=== PATIENT | female | born 1985 ===

== ENCOUNTER → 2021-07-12 | Outpatient (CLI) | payer BC ==
--- NOTE | 2021-07-13 07:54 | US ---
EXAMINATION TYPE: US pelvic complete DATE OF EXAM: 07/12/2021 COMPARISON: NONE CLINICAL HISTORY: D64.9 Anemia, unspecified. anemia, irregular menses, D&C 10/29 TECHNIQUE: Transabdominal (TA). Date of LMP: 07/11/21 EXAM MEASUREMENTS: Uterus: 8.0 x 3.5 x 4.6 cm Endometrial Stripe: 0.6 cm Right Ovary: 3.1 x 2.1 x 2.0 cm Left Ovary: 2.5 x 1.9 x 2.0 cm 1. Uterus: Anteverted wnl 2. Endometrium: wnl 3. Right Ovary: follicles noted 4. Left Ovary: follicles noted 5. Bilateral Adnexa: wnl 6. Posterior cul-de-sac: wnl Urinary bladder is sonolucent. The posterior wall is normal. IMPRESSION: 1. Normal pelvic ultrasound
== END | disposition home or self-care (01) ==
LOC: RADUSWWP 15:39 → MERGE 16:20
PROVIDERS: ATTEND Family Medicine
DX: D64.9 Anemia, unspecified (principal)
CPT/HCPCS: 76856

== ENCOUNTER 2021-10-28 04:01 | Emergency (ER) | payer BC ==
[2021-10-28 04:14] VITALS: PULSE 77
[2021-10-28 04:39] LABS: Basophils # (A) 0.1 k/uL (0-0.2); Basophils % (A) 1 %; Eosinophils # (A) 0.2 k/uL (0-0.7); Eosinophils % (A) 1 %; HCT 39.2 % (34.0-46.0); HGB 12.9 gm/dL (11.4-16.0); Lymphocytes # (A) 3.2 k/uL (1.0-4.8); Lymphocytes % (A) 31 %; MCH 28.1 pg (25.0-35.0); MCHC 32.8 g/dL (31.0-37.0); MCV 85.6 fL (80.0-100.0); Mean Platelet Volume 8.5; Monocytes # (A) 0.5 k/uL (0-1.0); Monocytes % (A) 5 %; Neutrophils # (A) 6.1 k/uL (1.3-7.7); Neutrophils % (A) 60 %; Platelet Count 253 k/uL (150-450); RBC 4.58 m/uL (3.80-5.40); RDW 12.6 % (11.5-15.5); WBC 10.2 k/uL (3.8-10.6)
[2021-10-28 04:47] LABS: Partial Thromboplastin Time 24.7 sec (22.0-30.0); Prothrombin Time 10.9 sec (9.0-12.0)
[2021-10-28 04:49] LABS: Appearance,Urine Cloudy (Clear); Bacteria,Urine Rare /hpf; Bilirubin,Urine Negative (Negative); Blood,Urine Large (Negative); Color,Urine Yellow; Glucose,Urine (UA) Negative (Negative); Hyaline Casts,Urine 1 /lpf (0-2); Ketones,Urine Negative (Negative); Leukocyte Esterase,Urine Negative (Negative); Mucus,Urine Occasional /hpf; Nitrite,Urine Negative (Negative); PH, Urine 5.5 (5.0-8.0); Protein,Urine Trace (Negative); RBC,Urine 10 /hpf (0-5); Specific Gravity,Urine 1.026 (1.001-1.035); Squamous Epithelial Cell,Urine 4 /hpf (0-4); Urobilinogen,Urine <2.0 mg/dL (<2.0); WBC,Urine 2 /hpf (0-5)
[2021-10-28 04:56] LABS: ALT 23 U/L (4-34); AST 21 U/L (14-36); African American GFR (CKD) >90 (>60 ml/min/1.73 sqM); Alkaline Phosphatase 88 U/L (38-126); Anion Gap 9 mmol/L; Blood Urea Nitrogen 11 mg/dL (7-17); Carbon Dioxide 21 mmol/L (22-30); Chloride 106 mmol/L (98-107); Glucose 105 mg/dL (74-99); Non-African American GFR(CKD) >90 (>60 ml/min/1.73 sqM); Potassium 3.9 mmol/L (3.5-5.1); Sodium 136 mmol/L (137-145); Total Bilirubin 0.9 mg/dL (0.2-1.3); Total Protein 7.8 g/dL (6.3-8.2)
[2021-10-28 05:47] LABS: HCG,Quantitative Serum 29646.5 mIU/mL
[2021-10-28 06:33] VITALS: BP 105/59; RESP 18; TEMP 98.5
--- NOTE | 2021-10-28 07:25 | ED ---
Female Urogenital HPI - General Source: patient Mode of arrival: ambulatory Limitations: no limitations - History of Present Illness Last Menstrual Period: 09/12/21 <Juanita Garza - Last Filed: 10/28/21 07:24> <Jesus Blanchard - Last Filed: 10/28/21 08:25> - General Chief complaint: Vaginal Bleeding Stated complaint: Vaginal Bleeding, 6 Weeks Preg. - History of Present Illness Initial comments: 36-year-old female who is approximately 6 weeks presents to the emergency room with vaginal bleeding. Last menstrual cycle was September 12. States that last week she followed up at the [facility]. She had laboratory studies completed as well as an ultrasound. Ultrasound demonstrated an intrauterine however no heartbeat was present. She has a follow-up appointment with Dr. Toney on November 12. States that last night she began having some mild brown spotting. No changes in her bowel or bladder habits. No fevers. Has had 1 previous miscarriage around the same time last year. No abdominal trauma. No other alleviating, precipitating or modifying factors (Juanita Garza) - Related Data Previous Rx's Medication Instructions Recorded Ibuprofen [Motrin] 600 mg PO Q6HR PRN #30 tab 11/04/20 Allergies Allergy/AdvReac Type Severity Reaction Status Date / Time shellfish derived [Shrimp] Allergy Rash/Hives Verified 10/28/21 04:15 Review of Systems ROS Other: All systems not noted in ROS Statement are negative. <Juanita Garza - Last Filed: 10/28/21 07:24> ROS Other: All systems not noted in ROS Statement are negative. <Jesus Blanchard - Last Filed: 10/28/21 08:25> ROS Statement: Those systems with pertinent positive or pertinent negative responses have been documented in the HPI. Past Medical History Past Medical History: No Reported History History of Any Multi-Drug Resistant Organisms: None Reported Past Surgical History: Section Past Anesthesia/Blood Transfusion Reactions: No Reported Reaction Past Psychological History: No Psychological Hx Reported Smoking Status: Never smoker Past Alcohol Use History: None Reported Past Drug Use History: None Reported - Past Family History Mother Family Medical History: Diabetes Mellitus <Juanita Garza - Last Filed: 10/28/21 07:24> General Exam Limitations: no limitations General appearance: alert, in no apparent distress Head exam: Present: atraumatic, normocephalic, normal inspection Eye exam: Present: normal appearance, PERRL, EOMI. Absent: scleral icterus, conjunctival injection, periorbital swelling ENT exam: Present: normal exam, mucous membranes moist Neck exam: Present: normal inspection. Absent: tenderness, meningismus, lymphadenopathy Respiratory exam: Present: normal lung sounds bilaterally. Absent: respiratory distress, wheezes, rales, rhonchi, stridor Cardiovascular Exam: Present: regular rate, normal rhythm, normal heart sounds. Absent: systolic murmur, diastolic murmur, rubs, gallop, clicks GI/Abdominal exam: Present: soft, normal bowel sounds. Absent: distended, tenderness, guarding, rebound, rigid Extremities exam: Present: normal inspection, full ROM, normal capillary refill. Absent: tenderness, pedal edema, joint swelling, calf tenderness Back exam: Present: normal inspection Neurological exam: Present: alert, oriented X3, CN II-XII intact Psychiatric exam: Present: normal affect, normal mood Skin exam: Present: warm, dry, intact, normal color. Absent: rash <Juanita Garza - Last Filed: 10/28/21 07:24> Course Vital Signs 10/28/21 10/28/21 04:11 06:30 Temperature 97.8 F 98.5 F Pulse Rate 77 77 Respiratory 16 18 Rate Blood Pressure 117/74 105/59 O2 Sat by Pulse 98 96 Oximetry Medical Decision Making - Lab Data Result diagrams: 10/28/21 04:26 10/28/21 04:26 <Juanita Garza - Last Filed: 10/28/21 07:24> - Lab Data Result diagrams: 10/28/21 04:26 10/28/21 04:26 <Jesus Blanchard - Last Filed: 10/28/21 08:25> - Medical Decision Making Upon arrival the patient is placed into 21. A thorough history and physical exam was performed. Laboratory studies are conducted. The Quant is 29,646. Patient is awaiting ultrasound and will be signed out to Dr. Blanchard. (Juanita Garza) Patient was signed out awaiting ultrasound imaging. Ultrasound performed showing a 6 week gestation with subchorionic hemorrhage and borderline bradycardia heart rate in the 100. Patient has not had significant vaginal bleeding only spotting. Her hemodynamics are stable. She does not require Rhogam. She is given return parameters and instructed to follow up with obstetrics. (Jesus Blanchard) - Lab Data Lab Results 10/28/21 10/28/21 10/28/21 Range/Units 04:26 04:26 04:26 WBC 10.2 (3.8-10.6) k/uL RBC 4.58 (3.80-5.40) m/uL Hgb 12.9 (11.4-16.0) gm/dL Hct 39.2 (34.0-46.0) % MCV 85.6 (80.0-100.0) fL MCH 28.1 (25.0-35.0) pg MCHC 32.8 (31.0-37.0) g/dL RDW 12.6 (11.5-15.5) % Plt Count 253 (150-450) k/uL MPV 8.5 Neutrophils % 60 % Lymphocytes % 31 % Monocytes % 5 % Eosinophils % 1 % Basophils % 1 % Neutrophils # 6.1 (1.3-7.7) k/uL Lymphocytes # 3.2 (1.0-4.8) k/uL Monocytes # 0.5 (0-1.0) k/uL Eosinophils # 0.2 (0-0.7) k/uL Basophils # 0.1 (0-0.2) k/uL PT 10.9 (9.0-12.0) sec INR 1.0 (<1.2) APTT 24.7 (22.0-30.0) sec Sodium (137-145) mmol/L Potassium (3.5-5.1) mmol/L Chloride (98-107) mmol/L Carbon Dioxide (22-30) mmol/L Anion Gap mmol/L BUN (7-17) mg/dL Creatinine (0.52-1.04) mg/dL Est GFR (CKD-EPI)AfAm (>60 ml/min/1.73 sqM) Est GFR (CKD-EPI)NonAf (>60 ml/min/1.73 sqM) Glucose (74-99) mg/dL Calcium (8.4-10.2) mg/dL Total Bilirubin (0.2-1.3) mg/dL AST (14-36) U/L ALT (4-34) U/L Alkaline Phosphatase (38-126) U/L Total Protein (6.3-8.2) g/dL Albumin (3.5-5.0) g/dL HCG, Quant mIU/mL Urine Color Yellow Urine Appearance Cloudy H (Clear) Urine pH 5.5 (5.0-8.0) Ur Specific Edmond 1.026 (1.001-1.035) Urine Protein Trace H (Negative) Urine Glucose (UA) Negative (Negative) Urine Ketones Negative (Negative) Urine Blood Large H (Negative) Urine Nitrite Negative (Negative) Urine Bilirubin Negative (Negative) Urine Urobilinogen <2.0 (<2.0) mg/dL Ur Leukocyte Esterase Negative (Negative) Urine RBC 10 H (0-5) /hpf Urine WBC 2 (0-5) /hpf Ur Squamous Epith Cells 4 (0-4) /hpf Urine Bacteria Rare H (None) /hpf Hyaline Casts 1 (0-2) /lpf Urine Mucus Occasional H (None) /hpf Blood Type Blood Type Recheck Bld Type Recheck Status 10/28/21 10/28/21 Range/Units 04:26 04:26 WBC (3.8-10.6) k/uL RBC (3.80-5.40) m/uL Hgb (11.4-16.0) gm/dL Hct (34.0-46.0) % MCV (80.0-100.0) fL MCH (25.0-35.0) pg MCHC (31.0-37.0) g/dL RDW (11.5-15.5) % Plt Count (150-450) k/uL MPV Neutrophils % % Lymphocytes % % Monocytes % % Eosinophils % % Basophils % % Neutrophils # (1.3-7.7) k/uL Lymphocytes # (1.0-4.8) k/uL Monocytes # (0-1.0) k/uL Eosinophils # (0-0.7) k/uL Basophils # (0-0.2) k/uL PT (9.0-12.0) sec INR (<1.2) APTT (22.0-30.0) sec Sodium 136 L (137-145) mmol/L Potassium 3.9 (3.5-5.1) mmol/L Chloride 106 (98-107) mmol/L Carbon Dioxide 21 L (22-30) mmol/L Anion Gap 9 mmol/L BUN 11 (7-17) mg/dL Creatinine 0.50 L (0.52-1.04) mg/dL Est GFR (CKD-EPI)AfAm >90 (>60 ml/min/1.73 sqM) Est GFR (CKD-EPI)NonAf >90 (>60 ml/min/1.73 sqM) Glucose 105 H (74-99) mg/dL Calcium 9.0 (8.4-10.2) mg/dL Total Bilirubin 0.9 (0.2-1.3) mg/dL AST 21 (14-36) U/L ALT 23 (4-34) U/L Alkaline Phosphatase 88 (38-126) U/L Total Protein 7.8 (6.3-8.2) g/dL Albumin 4.0 (3.5-5.0) g/dL HCG, Quant 06176.5 mIU/mL Urine Color Urine Appearance (Clear) Urine pH (5.0-8.0) Ur Specific Edmond (1.001-1.035) Urine Protein (Negative) Urine Glucose (UA) (Negative) Urine Ketones (Negative) Urine Blood (Negative) Urine Nitrite (Negative) Urine Bilirubin (Negative) Urine Urobilinogen (<2.0) mg/dL Ur Leukocyte Esterase (Negative) Urine RBC (0-5) /hpf Urine WBC (0-5) /hpf Ur Squamous Epith Cells (0-4) /hpf Urine Bacteria (None) /hpf Hyaline Casts (0-2) /lpf Urine Mucus (None) /hpf Blood Type A Positive Blood Type Recheck A Pos Bld Type Recheck Status No Disposition <Juanita Garza A - Last Filed: 10/28/21 07:24> Is patient prescribed a controlled substance at d/c from ED?: No Time of Disposition: 08:25 <Jesus Blanchard - Last Filed: 10/28/21 08:25> Clinical Impression: Threatened miscarriage in early Disposition: HOME SELF-CARE Condition: Fair Instructions (If sedation given, give patient instructions): Threatened Miscarriage (ED), (ED) Referrals: Alan Kebede MD [Primary Care Provider] - 1-2 days Constance Toney DO [Doctor of Osteopathic Medicine] - 1-2 days
--- NOTE | 2021-10-28 08:10 | US ---
EXAMINATION TYPE: Ultrasound OB <= 14 weeks transvaginal DATE OF EXAM: 10/28/2021 7:56 AM COMPARISON: NONE CLINICAL HISTORY: 36-year-old female vaginal bleeding, . EXAM PERFORMED: Transvaginal (TV) and Transabdominal (TA) FINDINGS: EXAM MEASUREMENTS: GESTATIONAL AGE / DATING Dates by LMP: (6 weeks/4 days) EDC: 06/19/2022 Dates by Current Scan for: (6 weeks/1 days) EDC: 06/22/2022 MATERNAL ANATOMY Uterus: 9.0 x 5.0 x 5.2 Right Ovary: 2.9 x 2.4 x1.6 Left Ovary: 3.8 x 2.3 x 2.1 Presence of free fluid: none Presence of corpus luteal cyst: Left measuring 1.3 x 1.5 x 1.6 Presence of subchorionic bleed: 2.0 x 1.1 x1.0 along the anterior inferior margin of the gestational sac. GESTATION / SURVEY CRL: 3.82 (6 weeks/1 days) Yolk Sac (normal less than 6mm): 0.3 Heart Rate: 100 bpm Rhythm: Normal IUP: Viable IUP Date of LMP: 09/12/2021 Beta HcG (if available): Radiology Rn notes: Single live IUP, hypoechoic area adjacent to gestational sac, possible subchorioni c bleed. IMPRESSION: 1. Single live intrauterine with estimated gestational age of 6 weeks 4 days by LMP. Curren t ultrasound biometry by crown-rump length is 6 weeks 1 day. 2. Note that heart rate is at the threshold of normal at 100 BPM. At 6 weeks 1 day, less than 1 00 BPM is borderline bradycardia. 3. A moderate sized 2.0 cm perigestational bleed along the inferior margin of the gestational sac. 4. Short interval follow-up can be performed.
== END 2021-10-28 08:54 | disposition home or self-care (01) ==
LOC: EC 04:01
DX: O20.0 Threatened abortion (principal); Z91.013 Allergy to seafood; Z3A.01 Less than 8 weeks gestation of pregnancy
CPT/HCPCS: 36415; 76801; 76817; 80053; 81001; 84702; 85025; 85610; 85730; 86900; 86901

== ENCOUNTER → 2021-11-01 | Outpatient (CLI) | payer BC | END | disposition home or self-care (01) | LOC: LABWHC1 10:02 | PROVIDERS: ATTEND Physician Assistant | DX: O26.859 Spotting complicating pregnancy, unspecified trimester (principal); Z3A.00 Weeks of gestation of pregnancy not specified | CPT/HCPCS: 36415; 84702 ==

== ENCOUNTER 2022-02-14 06:32 | Observation (INO) | payer BC ==
[2022-02-14] MEDS ORDERED: LACTATED RINGERS 1,000 ML IV SCH (10:00)
--- NOTE | 2022-02-14 10:44 | US ---
EXAMINATION TYPE: US OB >= 14 wk fetus DATE OF EXAM: 02/14/2022 COMPARISON: US CLINICAL HISTORY: bleeding, 22 weeks, pain and cramping Hx C Section, 1 miscarriage, D and C. Bleedin g, pain. . TECHNIQUE: Transabdominal (TA) GESTATIONAL AGE / DATING Physician Established: (22 weeks/1 day) EDC: 06/19/2022 Dates by LMP: (22 weeks/1 day) EDC: 06/19/2022 Dates by First Scan: (21 weeks/5 days) EDC: 06/22/2022 Dates by Current Scan: (21 weeks/5 days) EDC: 06/22/2022 SURVEY IUP: Single PLACENTA: Anterior/Fundal PREVIA: No Previa BJORN: 12.07 cm Normal CERVICAL LENGTH (transabdominal: norm > 3.0cm): Measured at 2.69 cm. Unable to clearly visualize. This measures shortened, although bladder is not full. Transvaginal not performed at this time-pend ing doctor's approval. Limited evaluation*. BIOMETRY PRESENTATION: Vertex LIE: Longitudinal BPD: 5.27 cm 22 weeks / 0 days HC: 19.24 cm 21 weeks / 3 days AC: 18.15 cm 23 weeks / 0 days FL: 3.72 cm 21 weeks / 6 days ESTIMATED WEIGHT IN GRAMS: 498.45 grams ESTIMATED WEIGHT IN LBS/OZ: 1 lb. 2 oz. WEIGHT PERCENTAGE BASED ON ESTABLISHED DATES: 55.6% HC/AC: 1.06 Normal FL/AC: 20.52 Normal HEART RATE: 135 bpm RHYTHM: Normal Limited visibility of cervix due to undistended bladder. Measurement taken of cervix appears shorte madeline, although limited. Transvaginal ultrasound pending doctor's approval. IMPRESSION: 1. Limited visibility of the cervix as noted above due to undistended bladder. Measurement of cervix appear somewhat shortened but could be related to the undistended bladder. Correlate clinically. 2. Viable fetus heart rate 135 bpm estimated age of 21 weeks 5 days. 3. Note is made anatomy assessment was not performed.
[2022-02-14 11:04] LABS: Basophils % (A) 0 %; Eosinophils % (A) 0 %; HCT 38.8 % (34.0-46.0); HGB 12.1 gm/dL (11.4-16.0); Lymphocytes # (A) 1.2 k/uL (1.0-4.8); Lymphocytes % (A) 5 %; MCHC 31.1 g/dL (31.0-37.0); MCV 86.9 fL (80.0-100.0); Mean Platelet Volume 8.4; Monocytes # (A) 0.8 k/uL (0-1.0); Monocytes % (A) 3 %; Neutrophils # (A) 23.8 k/uL (1.3-7.7); Neutrophils % (A) 92 %; Platelet Count 241 k/uL (150-450); RBC 4.46 m/uL (3.80-5.40); RDW 12.9 % (11.5-15.5)
[2022-02-14 11:06] LABS: Appearance,Urine Clear (Clear); Bilirubin,Urine Negative (Negative); Blood,Urine Negative (Negative); Color,Urine Yellow; Glucose,Urine (UA) Negative (Negative); Ketones,Urine 4+ (Negative); Leukocyte Esterase,Urine Negative (Negative); Nitrite,Urine Negative (Negative); Protein,Urine Trace (Negative); Specific Gravity,Urine 1.021 (1.001-1.035); Urobilinogen,Urine <2.0 mg/dL (<2.0)
[2022-02-14 13:26] LABS: Glucose,Whole Blood 96 mg/dL (75-99)
[2022-02-14] MEDS ORDERED: INDOMETHACIN 25 MG CAP PO STA (13:30)
[2022-02-14] MEDS ORDERED: AMPICILLIN 2,000 MG in SODIUM CHLORIDE 0.9% 100 ML IVPB STA (13:30)
[2022-02-14] MEDS ORDERED: CALCIUM GLUCONATE 1 GM/10 ML VIAL IV PRN (13:30)
[2022-02-14] MEDS ORDERED: MAGNESIUM SULFATE-WATER PMX 20 GM in WATER FOR INJECTION 1 500ML.BAG IV SCH (13:30)
[2022-02-14] MEDS ORDERED: MAGNESIUM SULFATE GM 6 GM in SODIUM CHLORIDE 0.9% 100 ML IVPB ONE (13:30)
[2022-02-14] MEDS ORDERED: BETAMET ACET-BETAMETH SOD PHOS 6 MG/ML MDV IM SCH (13:30)
[2022-02-14] MEDS ORDERED: MAGNESIUM SULFATE MG 6,000 MG in SODIUM CHLORIDE 0.9% 50 ML IVPB ONE (13:36)
[2022-02-14] MEDS ORDERED: AMPICILLIN 1,000 MG in SODIUM CHLORIDE 0.9% 50 ML IVPB SCH (13:45)
[2022-02-14 15:24] VITALS: RESP 16
[2022-02-14 17:24] VITALS: BP 106/55; PULSE 90; TEMP 98
[2022-02-14] MEDS ORDERED: SUCRALFATE 1 GM TAB PO SCH (17:30)
--- NOTE | 2022-02-14 17:58 | P.HPOB ---
History of Present Illness H&P Date: 02/14/22 Chief Complaint: Lower abdominal cramping, pressure This is a 36-year-old female 3 para 1 at 22 and one sevenths weeks with an estimated date of confinement of 06/19/2022 who presented earlier this morning with complaints of pressure and cramping since lifting a heavy object at work yesterday at about 11:30 AM. She did notice a little pinkish discharge with wiping when she presented to the hospital. Ultrasound was performed while she was here and looked essentially normal for gestational age but the cervical length could not be measured. Estimated weight was 498 g on ultrasound today. Her cramping had decreased after sitting in triage for a few hours but then when she got up to the bathroom she passed a few small clots. She was admitted and observed and complaining of contractions every 7-8 minutes. She was checked at approximately 1 PM and found to be 7-8 cm/70%/-3 station with bulging bag and vertex presentation palpated. Bloody show was noted. She was counseled regarding the fact that the baby is previable at 22 and one sevenths weeks' however there have been limited data on babies delivering this early and surviving however intact survival is very poor. Patient was counseled on all of these risks and was seen by Dr. Biggs from pediatrics who also counseled her regarding care. Knowing all of this information, the patient was given a choice on whether to just observe versus try to tocolyse and prevent delivery. She wishes to proceed with doing everything possible. She was started on magnesium sulfate and Indocin along with ampicillin and given betamethasone. She currently complains of no pain and bleeding has been minimal over 4-5 hour period of time. Her cervix was rechecked and is exactly the same as it was at 1 PM. She would like to be transferred to a higher level facility and I did speak with Dr. Leobardo Gregg ([facility]) from on at [facility] and he has agreed to transfer to the care of Dr. Deshaun Hairston. OB history: . History of 1 delivery at 35 weeks due to labor and after 12 hours of labor, the baby did flip to breech presentation. She also has a history of 1 miscarriage that did require a dilation and curettage. PLANNING LEAD history: No history of sexual transmitted diseases. Social history: She is . She works at a factory. Review of Systems Constitutional: Denies chills, Denies fever Eyes: denies blurred vision, denies pain Ears, nose, mouth and throat: Denies headache, Denies sore throat Cardiovascular: Denies chest pain, Denies shortness of breath Gastrointestinal: Reports abdominal pain (Initially was having lower abdominal cramping and pressure, no pain currently) Genitourinary: Reports abnormal vaginal bleeding, Reports pelvic pain, Reports Musculoskeletal: Reports low back pain Past Medical History Past Medical History: No Reported History History of Any Multi-Drug Resistant Organisms: None Reported Past Surgical History: Section Additional Past Surgical History / Comment(s): D&C Past Anesthesia/Blood Transfusion Reactions: No Reported Reaction Past Psychological History: No Psychological Hx Reported Smoking Status: Never smoker Past Alcohol Use History: None Reported Past Drug Use History: None Reported - Past Family History Mother Family Medical History: Diabetes Mellitus Medications and Allergies Home Medications Medication Instructions Recorded Confirmed Type Cetirizine HCl [Zyrtec] 1 tab PO DAILY 02/14/22 02/14/22 History Pnv No.95/Ferrous Fum/Folic AC 1 tab PO DAILY 02/14/22 02/14/22 History [ Multivitamin Tablet] Allergies Allergy/AdvReac Type Severity Reaction Status Date / Time shellfish derived [Shrimp] Allergy Rash/Hives Verified 10/28/21 04:15 Exam Osteopathic Statement: *. No significant issues noted on an osteopathic structural exam other than those noted in the History and Physical/Consult. Vital Signs Temp Pulse Resp BP Pulse Ox 02/14/22 17:00 98.0 F 90 16 106/55 02/14/22 15:49 94 16 111/56 02/14/22 15:20 98.2 F 92 16 114/53 02/14/22 14:45 100 16 112/60 02/14/22 14:22 103 H 16 115/62 98 02/14/22 14:10 109 H 16 116/58 02/14/22 14:00 98.4 F 103 H 16 116/59 02/14/22 11:21 98.4 F 95 18 103/64 99 02/14/22 07:19 97.3 F L 90 16 114/61 Intake and Output 06/05/3002/14/22 02/14/22 06:59 14:59 22:59 Intake Total 450 300 Output Total 600 250 Balance -150 50 Intake: Intake, IV Titration 400 200 Amount Ampicillin 2,000 mg In 100 Sodium Chloride 0.9% 100 ml @ 200 mls/hr IVPB ONCE STA Rx#:[id number] Lactated Ringers 1,000 ml 250 @ 125 mls/hr IV .Q8H COOPER Rx#:[id number] Magnesium Sulfate mg 6, 50 000 mg In Sodium Chloride 0.9% 50 ml @ 150 mls/hr IVPB ONCE ONE Rx#: [id number] Magnesium Sulfate-Water 200 Pmx 20 gm In Water For Injection 1 500ml.bag @ 2 GM/HR 50 mls/hr IV .Q10H COOPER Rx#:[id number] Oral 50 100 Output: Urine 600 250 Other: # Voids 2 1 Weight 79.379 kg 79.379 kg Results Result Diagrams: 02/14/22 10:41 Abnormal Lab Results - Last 24 Hours (Table) 02/14/22 02/14/22 Range/Units 10:41 10:45 WBC 26.0 H (3.8-10.6) k/uL Neutrophils # 23.8 H (1.3-7.7) k/uL Urine Protein Trace H (Negative) Urine Ketones 4+ H (Negative) Assessment and Plan (1) 22 weeks gestation of Current Visit: Yes Status: Acute Code(s): Z3A.22 - 22 WEEKS GESTATION OF SNOMED Code(s): 96249093 (2) labor in second trimester without delivery Current Visit: Yes Status: Acute Code(s): O60.02 - LABOR WITHOUT DELIVERY, SECOND TRIMESTER SNOMED Code(s): 86155115471194384 Plan: Admission for labor. Please see history of present illness for plan. We'll continue magnesium sulfate tocolyse this, Indocin, and ampicillin. She has received 1 dose of betamethasone. We'll transfer to [facility] in [place] under the care of Dr. Deshaun Hairston.
[2022-02-14] MEDS ORDERED: INDOMETHACIN 25 MG CAP PO SCH (19:30)
== END 2022-02-14 18:15 | disposition other institution (70) ==
LOC: FBPOP 06:32 → 4FBP 09:55
PROVIDERS: ADMIT Obstetrics & Gynecology; ATTEND Obstetrics & Gynecology
DX: O60.02 Preterm labor without delivery, second trimester (principal); O20.9 Hemorrhage in early pregnancy, unspecified; Z3A.22 22 weeks gestation of pregnancy; X50.0XXA Overexertion from strenuous movement or load, initial encounter; Y99.0 Civilian activity done for income or pay; Z91.013 Allergy to seafood; Z83.3 Family history of diabetes mellitus
CPT/HCPCS: 99213; 96374; 85025; 81003; 76805; G0378; J3475 ×2; J0290; J0702